=== PATIENT | female | born 1960 | race Two or more races ===

== ENCOUNTER 2023-06-22 19:50 | Emergency (ER) | payer OTHER ==
[~2023-06-22] VITALS: Ht 157.5 cm; Wt 79.5 kg
[2023-06-22] MEDS ORDERED: HYDROcodone-ACET 10/325MG TAB PO ONE (20:45)
[2023-06-22] MEDS ORDERED: KETOROLAC TROMETH 30 MG/ML 1ML VIAL IV ONE (22:45)
[2023-06-22] MEDS ORDERED: SODIUM CHLORIDE 0.9% 500 ML IV ONE (22:45)
[2023-06-22] MEDS ORDERED: MORPHINE SULFATE 4 MG/ML SYR/VIAL IV ONE (22:45)
[2023-06-22] MEDS ORDERED: LIDOCAINE 2%HCL (LOCAL ANESTH.) INJ 10ml MDV IJ ONE (23:15)
[2023-06-22] MEDS ORDERED: LORazepam 2MG/ML-1ML VIAL IV ONE (23:15)
[2023-06-23 00:10] VITALS: TEMP 98.1; O2SAT 99
[2023-06-23] MEDS ORDERED: HYDR-4902 PO (00:12)
[2023-06-23 00:50] VITALS: BP 111/67; PULSE 60; RESP 15
== END 2023-06-23 00:41 | disposition home or self-care (01) ==
LOC: ER 19:50
DX: S53.124A Posterior dislocation of right ulnohumeral joint, initial encounter (principal); S42.401A Unspecified fracture of lower end of right humerus, initial encounter for closed fracture; M25.421 Effusion, right elbow; Z79.899 Other long term (current) drug therapy; W01.0XXA Fall on same level from slipping, tripping and stumbling without subsequent striking against object, initial encounter; Y93.89 Activity, other specified; Y92.89 Other specified places as the place of occurrence of the external cause; Y99.8 Other external cause status
CPT/HCPCS: 23650; 73060; 73070; 73090; 96361; 96374; 96375; 99284; J1885; J2001; J2060; J2270; J7040